=== PATIENT | female | born 1950 | race Hispanic/Latino ===

== ENCOUNTER 2021-05-18 04:40 | Inpatient (IN) | payer MEDICARE ==
[~2021-05-18] VITALS: Ht 162.6 cm; Wt 88.9 kg
[~2021-05-18 04:40] MED LIST: AMIO200T68 PO; APIX5TAB PO; ASPI-1005 PO; ATOR40TA69 PO; CARV3.1262 PO; Cefuroxime Axetil PO; DAPA5TAB PO; DICL100G31 TP; FLUT25PO3 NASAL; FURO20TA6 PO; LEVE-43 PO; LORA10TA7 PO; LOSA50TA64 PO; MECL-160 PO
[2021-05-18 05:09] LABS: BASOPHILS % (AUTO) 0.6 % (0.0-5.0); EOSINOPHILS % (AUTO) 1.3 % (0.0-8.0); HEMATOCRIT 40.4 % (36-48); MEAN CORPUSCULAR HEMOGLOBIN 25.1 pg (27.0-33.0); MEAN CORPUSCULAR HGB CONC 29.7 g/dL (32.0-36.0); MEAN CORPUSCULAR VOLUME 84.5 fL (79-99); MONOCYTES % (AUTO) 8.7 % (3.0-13.0); NEUTROPHILS % (AUTO) 72.5 % (40.0-77.0); PLATELET COUNT (AUTO) 195 K/uL (130-400); RED BLOOD CELL COUNT(AUTO) 4.78 MIL/uL (4.00-5.50); RED CELL DISTRIBUTION WIDTH 16.5 % (11.0-15.5); WHITE BLOOD COUNT (AUTO) 9.3 K/uL (4.8-10.8)
[2021-05-18 05:12] LABS: INR 1.07 (0.85-1.15); PROTHROMBIN TIME 11.6 SEC (9.6-11.6)
[2021-05-18 05:14] LABS: CREATININE 1.3 mg/dL (0.5-1.5); PARTIAL THROMBOPLASTIN TIME 26.6 SEC (26.3-35.5); POTASSIUM 3.6 mmol/L (3.5-5.1)
[2021-05-18 05:20] LABS: ALBUMIN 3.5 g/dL (3.5-5.0); BILIRUBIN,TOTAL 0.5 mg/dL (0.2-1.0); MAGNESIUM 2.1 mg/dL (1.80-2.40); TOTAL PROTEIN, SERUM 7.3 g/dL (6.0-8.3)
[2021-05-18 05:34] LABS: B-TYPE NATRIURETIC PEPTIDE 674 pg/mL (0-100)
[2021-05-18] MEDS ORDERED: SACU1TAB PO (10:04)
[2021-05-18] MEDS ORDERED: FAMO40TA7 PO (10:11)
[2021-05-18] MEDS ORDERED: GLIP10TA9 PO (10:11)
[2021-05-18] MEDS ORDERED: METO25TA6 PO (10:11)
[2021-05-18] MEDS ORDERED: COMPOUND IV MISC 1 EACH IVSOLN MISC PRN (12:30)
[2021-05-18 14:40] LABS: ABG BASE EXCESS -0.3 mmol/L (-2.0-3.0); ABG HCO3 24.3 mmol/L (21.0-28.0); ABG OXYGEN SATURATION 97.1 % (95.0-99.0); ABG PCO2 40 mmHg (32-45)
[2021-05-18] MEDS: ATORVASTATIN 40 MG TABLET PO SCH (21:00)
[2021-05-18] MEDS: LEVETIRACETAM 500 MG in 0.9%NACL 100ML 100 ML IV SCH (21:00)
[2021-05-18] MEDS ORDERED: LEVETIRACETAM 500 MG TABLET PO SCH (21:00)
[2021-05-18 22:00] LABS: APPEARANCE,URINE Turbid (CLEAR); BILIRUBIN,URINE Negative (NEGATIVE); COLOR,URINE Yellow (YELLOW); GLUCOSE, URINE (UA) >=1000 mg/dL (NEGATIVE); KETONES,URINE Negative (NEGATIVE); LEUKOCYTE ESTERASE ,URINE Trace (NEGATIVE); NITRATE,URINE Negative (NEGATIVE); OCCULT BLOOD,URINE Large (NEGATIVE); PROTEIN,URINE 300 mg/dL (NEGATIVE); UROBILINOGEN,URINE 0.2 mg/dL (0.2-1.0)
[2021-05-18 22:32] LABS: BACTERIA,URINE Moderate /HPF (None Seen); MUCUS,URINE Rare LPF (None Seen); YEAST,URINE BUDDING Many /HPF (None Seen)
[2021-05-19] VITALS (7 sets, daily range): BP systolic 124–145; BP diastolic 64–81
[2021-05-19 04:53] LABS: ABG BASE EXCESS 0.5 mmol/L (-2.0-3.0); ABG HCO3 24.8 mmol/L (21.0-28.0); ABG OXYGEN SATURATION 94.8 % (95.0-99.0); ABG PCO2 39 mmHg (32-45)
[2021-05-19] MEDS: ASPIRIN 81MG CHEW TAB PO SCH (08:39)
[2021-05-19] MEDS: LEVETIRACETAM 500 MG in 0.9%NACL 100ML 100 ML IV SCH ×2 (08:39→20:05)
[2021-05-19] MEDS: ATORVASTATIN 40 MG TABLET PO SCH (20:05)
[2021-05-20 04:06] LABS: BASOPHILS % (AUTO) 0.8 % (0.0-5.0); EOSINOPHILS % (AUTO) 0.5 % (0.0-8.0); HEMATOCRIT 38.5 % (36-48); LYMPHOCYTES % (AUTO) 32.2 % (21.0-51.0); MEAN CORPUSCULAR HEMOGLOBIN 25.1 pg (27.0-33.0); MEAN CORPUSCULAR HGB CONC 29.6 g/dL (32.0-36.0); MEAN CORPUSCULAR VOLUME 84.6 fL (79-99); MONOCYTES % (AUTO) 16.4 % (3.0-13.0); NEUTROPHILS % (AUTO) 49.3 % (40.0-77.0); PLATELET COUNT (AUTO) 154 K/uL (130-400); RED BLOOD CELL COUNT(AUTO) 4.55 MIL/uL (4.00-5.50); RED CELL DISTRIBUTION WIDTH 16.7 % (11.0-15.5); WHITE BLOOD COUNT (AUTO) 3.9 K/uL (4.8-10.8)
[2021-05-20 04:39] LABS: CARBON DIOXIDE 26 mmol/L (21-32); CHLORIDE 106 mmol/L (101-111); CREATININE 1.2 mg/dL (0.5-1.5); GLOMERULAR FILTR. RATE CALC 47 mL/min (>60); GLUCOSE,RANDOM 163 mg/dL (70-105); POTASSIUM 4.4 mmol/L (3.5-5.1); SODIUM SERUM 138 mmol/L (136-145); UREA NITROGEN, BLOOD 33 mg/dL (7-18)
[2021-05-20 04:42] LABS: CRP QUANTITATIVE < 2.00 mg/L (0.00-9.0)
[2021-05-20 04:45] VITALS: BP 118/57
[2021-05-20 08:00] VITALS: BP 139/69
[2021-05-20] MEDS: FUROSEMIDE 20 MG TABLET PO SCH ×2 (08:24→21:03)
[2021-05-20] MEDS: ASPIRIN 81MG CHEW TAB PO SCH (08:24)
[2021-05-20] MEDS: FAMOTIDINE 20MG TAB PO SCH (08:25)
[2021-05-20] MEDS: FARXIGA 5 MG PO SCH (09:00)
[2021-05-20] MEDS: LEVETIRACETAM 500 MG TABLET PO SCH ×2 (09:31→21:03)
[2021-05-20 12:00] VITALS: BP 136/69
[2021-05-20] MEDS: SACUBITRIL/VALSARTAN 1 EACH TABLET PO SCH ×2 (12:12→21:03)
[2021-05-20] MEDS ORDERED: VANCOMYCIN 1G/250ML KIT 250 ML IV PRN (14:30)
[2021-05-20 16:00] VITALS: BP 132/76
[2021-05-20 20:02] VITALS: BP 142/73
[2021-05-20] MEDS: ATORVASTATIN 40 MG TABLET PO SCH (21:03)
[2021-05-21] VITALS (7 sets, daily range): BP systolic 120–146; BP diastolic 53–88
[2021-05-21] MEDS: FARXIGA 5 MG PO SCH (09:00)
[2021-05-21] MEDS: LEVETIRACETAM 500 MG TABLET PO SCH ×2 (09:02→19:59)
[2021-05-21] MEDS: FAMOTIDINE 20MG TAB PO SCH (09:02)
[2021-05-21] MEDS: FUROSEMIDE 20 MG TABLET PO SCH ×2 (09:02→19:59)
[2021-05-21] MEDS: SACUBITRIL/VALSARTAN 1 EACH TABLET PO SCH ×2 (09:02→19:59)
[2021-05-21] MEDS: ASPIRIN 81MG CHEW TAB PO SCH (09:03)
[2021-05-21] MEDS ORDERED: GLUCAGON 1MG KIT 1 MG ML IM PRN (14:30)
[2021-05-21] MEDS ORDERED: DEXTROSE 50%-WATER 50 ML DISP.SYRIN IV PRN (14:30)
[2021-05-21] MEDS: INSULIN HUMULIN R 100 UNIT/ML 3ML SQ SCH ×2 (16:48→20:46)
[2021-05-21] MEDS: ATORVASTATIN 40 MG TABLET PO SCH (20:03)
[2021-05-21] MEDS: NITROFURANTOIN MONOHYD/M-CRYST 100 MG CAPSULE PO SCH (20:03)
[2021-05-22 04:11] VITALS: BP 118/61
[2021-05-22 04:34] LABS: BASOPHILS % (AUTO) 0.5 % (0.0-5.0); HEMATOCRIT 43.2 % (36-48); LYMPHOCYTES % (AUTO) 47.9 % (21.0-51.0); MEAN CORPUSCULAR HEMOGLOBIN 24.7 pg (27.0-33.0); MEAN CORPUSCULAR HGB CONC 29.6 g/dL (32.0-36.0); MEAN CORPUSCULAR VOLUME 83.2 fL (79-99); MONOCYTES % (AUTO) 12.1 % (3.0-13.0); NEUTROPHILS % (AUTO) 38.2 % (40.0-77.0); PLATELET COUNT (AUTO) 166 K/uL (130-400); RED BLOOD CELL COUNT(AUTO) 5.19 MIL/uL (4.00-5.50); RED CELL DISTRIBUTION WIDTH 16.4 % (11.0-15.5); WHITE BLOOD COUNT (AUTO) 3.9 K/uL (4.8-10.8)
[2021-05-22 05:02] LABS: CREATININE 1.3 mg/dL (0.5-1.5); POTASSIUM 3.5 mmol/L (3.5-5.1)
[2021-05-22] MEDS: INSULIN HUMULIN R 100 UNIT/ML 3ML SQ SCH ×4 (05:55→21:00)
[2021-05-22] MEDS ORDERED: COMPOUND IV REFRIGERATED 1 EACH IVSOLN MISC PRN (08:30)
[2021-05-22] MEDS ORDERED: VANCOMYCIN PROTOCOL PER PHARMACY IV SCH (08:30)
[2021-05-22] MEDS: FUROSEMIDE 20 MG TABLET PO SCH ×2 (10:54→20:40)
[2021-05-22] MEDS: LEVETIRACETAM 500 MG TABLET PO SCH ×2 (10:54→20:40)
[2021-05-22] MEDS: SACUBITRIL/VALSARTAN 1 EACH TABLET PO SCH ×2 (10:55→20:40)
[2021-05-22] MEDS: FAMOTIDINE 20MG TAB PO SCH (10:55)
[2021-05-22] MEDS: NITROFURANTOIN MONOHYD/M-CRYST 100 MG CAPSULE PO SCH ×2 (10:55→20:40)
[2021-05-22] MEDS: ASPIRIN 81MG CHEW TAB PO SCH (10:55)
[2021-05-22] MEDS: FARXIGA 5 MG PO SCH (10:55)
[2021-05-22] MEDS: VANCOMYCIN 1.25GM/NS 250ML IVPB SCH ×2 (11:20)
[2021-05-22 12:00] VITALS: BP 136/83
[2021-05-22 16:00] VITALS: BP 143/85
[2021-05-22 20:00] VITALS: BP 120/49
[2021-05-22] MEDS: ATORVASTATIN 40 MG TABLET PO SCH (20:40)
[2021-05-22] MEDS: BUSPIRONE HCL 5 MG TABLET PO SCH (20:40)
[2021-05-23] VITALS (12 sets, daily range): BP systolic 125–157; BP diastolic 49–94
[2021-05-23 05:00] LABS: BASOPHILS % (AUTO) 0.4 % (0.0-5.0); EOSINOPHILS % (AUTO) 0.9 % (0.0-8.0); HEMATOCRIT 43.7 % (36-48); LYMPHOCYTES % (AUTO) 44.9 % (21.0-51.0); MEAN CORPUSCULAR HEMOGLOBIN 25.4 pg (27.0-33.0); MEAN CORPUSCULAR VOLUME 84.7 fL (79-99); MONOCYTES % (AUTO) 10.5 % (3.0-13.0); NEUTROPHILS % (AUTO) 42.9 % (40.0-77.0); PLATELET COUNT (AUTO) 158 K/uL (130-400); RED BLOOD CELL COUNT(AUTO) 5.16 MIL/uL (4.00-5.50); RED CELL DISTRIBUTION WIDTH 16.5 % (11.0-15.5); WHITE BLOOD COUNT (AUTO) 4.6 K/uL (4.8-10.8)
[2021-05-23 05:15] LABS: CREATININE 1.4 mg/dL (0.5-1.5); POTASSIUM 3.4 mmol/L (3.5-5.1)
[2021-05-23 05:24] LABS: INR 0.96 (0.85-1.15); PROTHROMBIN TIME 10.5 SEC (9.6-11.6)
[2021-05-23] MEDS: INSULIN HUMULIN R 100 UNIT/ML 3ML SQ SCH ×4 (06:12→21:00)
[2021-05-23] MEDS ORDERED: DiphenhydrAMINE HCL 50 MG/ML VIAL ONE (07:24)
[2021-05-23] MEDS ORDERED: IOHEXOL-350 50ML VIAL IV ONE (07:24)
[2021-05-23] MEDS ORDERED: SOLU-MEDROL 125MG VIAL ONE (07:24)
[2021-05-23] MEDS ORDERED: MIDAZOLAM HCL 1 MG/ML 2ML VIAL ONE ×3 (07:24→11:18)
[2021-05-23] MEDS ORDERED: LIDOCAINE HCL 400MG/20ML VIAL ONE ×2 (07:25→11:18)
[2021-05-23] MEDS ORDERED: FAMOTIDINE 20MG VIAL IV ONE (07:25)
[2021-05-23] MEDS ORDERED: FENTANYL CITRATE PF 50 MCG/1 ML 2ML VIAL ONE (07:25)
[2021-05-23] MEDS ORDERED: IOHEXOL 350 MG/ML 100ML INFUS..BTL IV ONE (07:49)
[2021-05-23] MEDS ORDERED: POTASSIUM CHLORIDE 20MEQ/100ML 100 ML IV PRN ×2 (08:00→11:30)
[2021-05-23] MEDS ORDERED: LIDOCAINE HCL-MPF 1% 2ML VIAL IV PRN ×2 (08:00→11:30)
[2021-05-23] MEDS ORDERED: BUPIVACAINE/PF 0.25% 30ML VIAL IJ ONE (08:03)
[2021-05-23] MEDS ORDERED: LIDOCAINE HCL 1% 20 ML VIAL ONE (08:38)
[2021-05-23] MEDS: VANCOMYCIN 1.25GM/NS 250ML IVPB SCH ×2 (09:00)
[2021-05-23] MEDS: FARXIGA 5 MG PO SCH (09:00)
[2021-05-23] MEDS ORDERED: TRAMADOL HCL 50 MG TABLET PO PRN (10:30)
[2021-05-23] MEDS: FAMOTIDINE 20MG TAB PO SCH (10:59)
[2021-05-23] MEDS: ASPIRIN 81MG CHEW TAB PO SCH (11:00)
[2021-05-23] MEDS: BUSPIRONE HCL 5 MG TABLET PO SCH ×2 (11:00→20:37)
[2021-05-23] MEDS: FUROSEMIDE 20 MG TABLET PO SCH ×2 (11:01→20:38)
[2021-05-23] MEDS: SACUBITRIL/VALSARTAN 1 EACH TABLET PO SCH ×2 (11:01→20:38)
[2021-05-23] MEDS: POTASSIUM CHLORIDE 10% ELIXIR 20 MEQ/15 ML UDCUP PO PRN ×2 (11:15→17:54)
[2021-05-23] MEDS ORDERED: IODIXANOL 320 MG/ML 100 ML VIAL ONE (11:18)
[2021-05-23] MEDS ORDERED: HEPARIN 10,000 UNIT/10ML (1,000 UNIT/ML) VIAL ONE (11:19)
[2021-05-23] MEDS ORDERED: KCL 20 MEQ ERTAB PO PRN (11:30)
[2021-05-23] MEDS: ACETAMINOPHEN WITH CODEINE 1 TAB TAB PO PRN ×2 (15:56→20:38)
[2021-05-23] MEDS: ATORVASTATIN 40 MG TABLET PO SCH (20:37)
[2021-05-23] MEDS: AMOXICILLIN 500 MG CAPSULE PO SCH (20:38)
[2021-05-24 03:28] VITALS: BP 122/70
[2021-05-24 04:22] LABS: BASOPHILS % (AUTO) 0.2 % (0.0-5.0); HEMATOCRIT 43.9 % (36-48); LYMPHOCYTES % (AUTO) 17.1 % (21.0-51.0); MEAN CORPUSCULAR HEMOGLOBIN 25.1 pg (27.0-33.0); MEAN CORPUSCULAR HGB CONC 30.1 g/dL (32.0-36.0); MEAN CORPUSCULAR VOLUME 83.5 fL (79-99); MONOCYTES % (AUTO) 8.8 % (3.0-13.0); NEUTROPHILS % (AUTO) 73.3 % (40.0-77.0); PLATELET COUNT (AUTO) 171 K/uL (130-400); RED BLOOD CELL COUNT(AUTO) 5.26 MIL/uL (4.00-5.50); RED CELL DISTRIBUTION WIDTH 16.3 % (11.0-15.5); WHITE BLOOD COUNT (AUTO) 5.4 K/uL (4.8-10.8)
[2021-05-24 04:41] LABS: ALBUMIN 3.1 g/dL (3.5-5.0); BILIRUBIN,TOTAL 0.4 mg/dL (0.2-1.0); CREATININE 1.4 mg/dL (0.5-1.5); POTASSIUM 4.2 mmol/L (3.5-5.1); TOTAL PROTEIN, SERUM 6.9 g/dL (6.0-8.3)
[2021-05-24 08:34] VITALS: BP 133/72
[2021-05-24] MEDS: ASPIRIN 81MG CHEW TAB PO SCH (08:40)
[2021-05-24] MEDS: SACUBITRIL/VALSARTAN 1 EACH TABLET PO SCH ×2 (08:40→20:31)
[2021-05-24] MEDS: AMOXICILLIN 500 MG CAPSULE PO SCH ×2 (08:40→20:31)
[2021-05-24] MEDS: FUROSEMIDE 20 MG TABLET PO SCH ×2 (08:41→20:31)
[2021-05-24] MEDS: FAMOTIDINE 20MG TAB PO SCH (08:41)
[2021-05-24] MEDS: BUSPIRONE HCL 5 MG TABLET PO SCH ×2 (08:41→20:31)
[2021-05-24] MEDS: INSULIN HUMULIN R 100 UNIT/ML 3ML SQ SCH ×4 (08:51→20:51)
[2021-05-24] MEDS: VANCOMYCIN 1.25GM/NS 250ML IVPB SCH ×2 (10:01)
[2021-05-24 12:26] VITALS: BP 132/70
[2021-05-24 16:30] VITALS: BP 114/61
[2021-05-24 19:00] VITALS: BP 122/64
[2021-05-24] MEDS: ATORVASTATIN 40 MG TABLET PO SCH (20:32)
== END 2021-05-24 20:52 | disposition home or self-care (01) | DRG 226 ==
LOC: EDH 04:40 → EDHIP 07:54 → 2AH 22:37
PROVIDERS: ADMIT Internal Medicine; ATTEND Internal Medicine
PROC: 0JH608Z Insertion of Defibrillator Generator into Chest Subcutaneous Tissue and Fascia, Open Approach (ICD-10-PCS; principal; 2021-05-23)
PROC: 02HK3KZ Insertion of Defibrillator Lead into Right Ventricle, Percutaneous Approach (ICD-10-PCS; 2021-05-23)
PROC: 02H63KZ Insertion of Defibrillator Lead into Right Atrium, Percutaneous Approach (ICD-10-PCS; 2021-05-23)
PROC: 02HL3KZ Insertion of Defibrillator Lead into Left Ventricle, Percutaneous Approach (ICD-10-PCS; 2021-05-23)
DX: I46.9 Cardiac arrest, cause unspecified (principal); J12.82 Pneumonia due to coronavirus disease 2019; U07.1 COVID-19; I13.0 Hypertensive heart and chronic kidney disease with heart failure and stage 1 through stage 4 chronic kidney disease, or unspecified chronic kidney disease; I50.42 Chronic combined systolic (congestive) and diastolic (congestive) heart failure; N39.0 Urinary tract infection, site not specified; E87.1 Hypo-osmolality and hyponatremia; I69.354 Hemiplegia and hemiparesis following cerebral infarction affecting left non-dominant side; I42.9 Cardiomyopathy, unspecified; I45.2 Bifascicular block; I44.2 Atrioventricular block, complete; I48.0 Paroxysmal atrial fibrillation; I27.20 Pulmonary hypertension, unspecified; I25.10 Atherosclerotic heart disease of native coronary artery without angina pectoris; E78.5 Hyperlipidemia, unspecified; G47.30 Sleep apnea, unspecified; E66.9 Obesity, unspecified; B95.2 Enterococcus as the cause of diseases classified elsewhere; E11.22 Type 2 diabetes mellitus with diabetic chronic kidney disease; E78.00 Pure hypercholesterolemia, unspecified; N18.9 Chronic kidney disease, unspecified; Z68.35 Body mass index [BMI] 35.0-35.9, adult; I25.2 Old myocardial infarction; Z79.899 Other long term (current) drug therapy; Z82.5 Family history of asthma and other chronic lower respiratory diseases; Z82.3 Family history of stroke; Z82.49 Family history of ischemic heart disease and other diseases of the circulatory system; Z83.3 Family history of diabetes mellitus; Z98.49 Cataract extraction status, unspecified eye; Z79.82 Long term (current) use of aspirin; Z87.442 Personal history of urinary calculi; Z95.810 Presence of automatic (implantable) cardiac defibrillator; Z95.1 Presence of aortocoronary bypass graft
CPT/HCPCS: 33225; 33249; 36415; 36600; 70450; 70551; 71045; 80048; 80053; 81001; 82435; 82550; 82803; 82947; 82948; 83605; 83735; 83880; 84132; 84145; 84146; 84295; 84484; 85018; 85025; 85378; 85610; 85730; 86140; 87077; 87088; 87186; 87635; 93005; 99156; 99157; C1769; C9803; G0378; J1200; J1644; J1815; J1953; J2250; J2930; J3010; J3370; J3490; J7050; Q9967

== ENCOUNTER 2021-06-19 22:15 | Inpatient (IN) | payer MEDICARE ==
[~2021-06-19] VITALS: Ht 160 cm; Wt 95.6 kg
[~2021-06-19 22:15] MED LIST changes: -Cefuroxime Axetil PO; -DICL100G31 TP; +FAMO40TA7 PO; -FLUT25PO3 NASAL; -LEVE-43 PO; -LORA10TA7 PO; -LOSA50TA64 PO; -MECL-160 PO; +SACU1TAB PO
[2021-06-19] MEDS ORDERED: 0.9%NACL 1000ML 1,000 ML IV ONE (22:30)
[2021-06-19 22:59] LABS: BASOPHILS % (AUTO) 0.3 % (0.0-5.0); HEMATOCRIT 38.8 % (36-48); LYMPHOCYTES % (AUTO) 2.2 % (21.0-51.0); MEAN CORPUSCULAR HEMOGLOBIN 26.4 pg (27.0-33.0); MEAN CORPUSCULAR HGB CONC 30.4 g/dL (32.0-36.0); MEAN CORPUSCULAR VOLUME 86.8 fL (79-99); MONOCYTES % (AUTO) 5.7 % (3.0-13.0); NEUTROPHILS % (AUTO) 88.1 % (40.0-77.0); PLATELET COUNT (AUTO) 118 K/uL (130-400); RED BLOOD CELL COUNT(AUTO) 4.47 MIL/uL (4.00-5.50); RED CELL DISTRIBUTION WIDTH 17.7 % (11.0-15.5); WHITE BLOOD COUNT (AUTO) 21.3 K/uL (4.8-10.8)
[2021-06-19 23:08] LABS: CREATININE 2.5 mg/dL (0.5-1.5); POTASSIUM 3.8 mmol/L (3.5-5.1)
[2021-06-19 23:15] LABS: INR 1.17 (0.85-1.15); PROTHROMBIN TIME 12.6 SEC (9.6-11.6)
[2021-06-19 23:17] LABS: ALBUMIN 3.1 g/dL (3.5-5.0); BILIRUBIN,TOTAL 0.8 mg/dL (0.2-1.0); PARTIAL THROMBOPLASTIN TIME 32.8 SEC (26.3-35.5)
[2021-06-19] MEDS ORDERED: ZOSYN 3.375GM +NS 50ML IV ONE (23:30)
[2021-06-20] MEDS ORDERED: ZOSYN 3.375GM+NS 50ML 50 ML ONE (00:35)
[2021-06-20] MEDS ORDERED: 0.9%NACL 1000ML 1,000 ML IV ONE (01:00)
[2021-06-20] MEDS ORDERED: 0.9%NACL 1000ML 1,000 ML IV SCH (02:00)
[2021-06-20] MEDS ORDERED: ACETAMINOPHEN 325 MG TAB PO PRN (02:00)
[2021-06-20] MEDS ORDERED: ONDANSETRON 4MG INJ IV PRN (02:00)
[2021-06-20 03:06] LABS: APPEARANCE,URINE Turbid (CLEAR); BILIRUBIN,URINE Negative (NEGATIVE); COLOR,URINE Yellow (YELLOW); GLUCOSE, URINE (UA) >=1000 mg/dL (NEGATIVE); KETONES,URINE Negative (NEGATIVE); LEUKOCYTE ESTERASE ,URINE Large (NEGATIVE); NITRATE,URINE Negative (NEGATIVE); OCCULT BLOOD,URINE Large (NEGATIVE); PROTEIN,URINE POS 1+ mg/dL (NEGATIVE)
[2021-06-20 03:14] LABS: BACTERIA,URINE Moderate /HPF (None Seen); MUCUS,URINE Moderate LPF (None Seen); RBC,URINE 26-50 /HPF (0-1); SQUAMOUS EPITHELIAL CELL,UR None Seen /HPF (0-2); WBC,URINE TNTC /HPF (0-1)
[2021-06-20] MEDS: INSULIN HUMULIN R 100 UNIT/ML 3ML SQ SCH ×4 (07:30→21:00)
[2021-06-20 08:00] LABS: BASOPHILS % (AUTO) 0.2 % (0.0-5.0); EOSINOPHILS % (AUTO) 7.3 % (0.0-8.0); HEMATOCRIT 34.9 % (36-48); LYMPHOCYTES % (AUTO) 5.1 % (21.0-51.0); MEAN CORPUSCULAR HEMOGLOBIN 26.1 pg (27.0-33.0); MEAN CORPUSCULAR HGB CONC 30.1 g/dL (32.0-36.0); MEAN CORPUSCULAR VOLUME 86.8 fL (79-99); MONOCYTES % (AUTO) 5.1 % (3.0-13.0); NEUTROPHILS % (AUTO) 79.1 % (40.0-77.0); PLATELET COUNT (AUTO) 105 K/uL (130-400); RED BLOOD CELL COUNT(AUTO) 4.02 MIL/uL (4.00-5.50); RED CELL DISTRIBUTION WIDTH 17.8 % (11.0-15.5); WHITE BLOOD COUNT (AUTO) 23.1 K/uL (4.8-10.8)
[2021-06-20 08:11] LABS: ALBUMIN 2.6 g/dL (3.5-5.0); BILIRUBIN,TOTAL 0.6 mg/dL (0.2-1.0); CREATININE 2.1 mg/dL (0.5-1.5); POTASSIUM 3.5 mmol/L (3.5-5.1); TOTAL PROTEIN, SERUM 6.1 g/dL (6.0-8.3)
[2021-06-20 08:19] LABS: CRP QUANTITATIVE 203.9 mg/L (0.00-9.0)
[2021-06-20] MEDS: ZOSYN 3.375GM+NS 50ML 50 ML IV SCH ×3 (08:35→21:14)
[2021-06-20] MEDS ORDERED: FAMOTIDINE 20MG TAB PO SCH (09:00)
[2021-06-20] MEDS ORDERED: AMIO400T4 PO (11:33)
[2021-06-20] MEDS ORDERED: INSU100V12 SQ (11:33)
[2021-06-20] MEDS ORDERED: LORA10TA7 PO (11:33)
[2021-06-20] MEDS ORDERED: FUROSEMIDE 20MG VIAL IV ONE (17:30)
[2021-06-20] MEDS ORDERED: PHARMACY COMMUNICATION MISC ONE (23:45)
[2021-06-21] MEDS ORDERED: VANCOMYCIN 1G VIAL IVPB ONE
[2021-06-21] MEDS ORDERED: VANCOMYCIN PROTOCOL PER PHARMACY IV SCH
[2021-06-21] MEDS ORDERED: RENAL DOSE IV PRN
[2021-06-21] MEDS ORDERED: VANCOMYCIN 1G/250ML KIT 250 ML IV ONE (00:56)
[2021-06-21] MEDS: MEROPENEM 1 GM VIAL IVP SCH ×3 (00:59→17:48)
[2021-06-21 07:11] LABS: BASOPHILS % (AUTO) 0.3 % (0.0-5.0); EOSINOPHILS % (AUTO) 0.1 % (0.0-8.0); HEMATOCRIT 35.1 % (36-48); LYMPHOCYTES % (AUTO) 6.3 % (21.0-51.0); MEAN CORPUSCULAR HEMOGLOBIN 26.5 pg (27.0-33.0); MEAN CORPUSCULAR HGB CONC 30.5 g/dL (32.0-36.0); MEAN CORPUSCULAR VOLUME 86.9 fL (79-99); MONOCYTES % (AUTO) 5.1 % (3.0-13.0); NEUTROPHILS % (AUTO) 85.9 % (40.0-77.0); PLATELET COUNT (AUTO) 111 K/uL (130-400); RED BLOOD CELL COUNT(AUTO) 4.04 MIL/uL (4.00-5.50); RED CELL DISTRIBUTION WIDTH 17.9 % (11.0-15.5); WHITE BLOOD COUNT (AUTO) 18.1 K/uL (4.8-10.8)
[2021-06-21 07:21] LABS: CREATININE 1.7 mg/dL (0.5-1.5); MAGNESIUM 2.1 mg/dL (1.80-2.40); PHOSPHORUS 3.8 mg/dL (2.5-4.9); POTASSIUM 3.6 mmol/L (3.5-5.1)
[2021-06-21] MEDS: INSULIN HUMULIN R 100 UNIT/ML 3ML SQ SCH ×5 (07:30→21:15)
[2021-06-21 07:35] LABS: HEMOGLOBIN A1C 8.5 % (4.0-6.0)
[2021-06-21] MEDS: PANTOPRAZOLE 40 MG/VIAL IVP SCH (09:00)
[2021-06-21] MEDS: LORATADINE 10 MG TABLET PO SCH (09:00)
[2021-06-21] MEDS ORDERED: FLUCONAZOLE 100 MG TAB PO SCH (09:00)
[2021-06-21] MEDS: AMIODARONE 200 MG TABLET PO SCH (09:30)
[2021-06-21] MEDS: MIDODRINE HCL 5 MG TABLET PO SCH ×3 (09:30→21:00)
[2021-06-21] MEDS: ASPIRIN 81MG CHEW TAB PO SCH (09:30)
[2021-06-21] MEDS: CARVEDILOL 3.125 MG TABLET PO SCH ×2 (09:30→21:07)
[2021-06-21] MEDS ORDERED: FUROSEMIDE 20MG VIAL ONE (11:12)
[2021-06-21] MEDS: VANCOMYCIN 1G/250ML KIT 250 ML IV SCH (13:00)
[2021-06-21 20:00] VITALS: BP 126/58
[2021-06-21] MEDS: ATORVASTATIN 40 MG TABLET PO SCH (21:06)
[2021-06-21 23:47] VITALS: BP 136/76
[2021-06-22] MEDS: MEROPENEM 1 GM VIAL IVP SCH ×2 (00:46→10:04)
[2021-06-22 04:04] VITALS: BP 112/53
[2021-06-22 05:58] LABS: BASOPHILS % (AUTO) 0.3 % (0.0-5.0); EOSINOPHILS % (AUTO) 0.1 % (0.0-8.0); HEMATOCRIT 37.6 % (36-48); MEAN CORPUSCULAR HEMOGLOBIN 25.8 pg (27.0-33.0); MEAN CORPUSCULAR HGB CONC 29.5 g/dL (32.0-36.0); MEAN CORPUSCULAR VOLUME 87.4 fL (79-99); MONOCYTES % (AUTO) 4.5 % (3.0-13.0); NEUTROPHILS % (AUTO) 82.9 % (40.0-77.0); PLATELET COUNT (AUTO) 122 K/uL (130-400)
[2021-06-22 06:21] LABS: CREATININE 1.3 mg/dL (0.5-1.5); POTASSIUM 3.6 mmol/L (3.5-5.1)
[2021-06-22] MEDS: INSULIN HUMULIN R 100 UNIT/ML 3ML SQ SCH ×4 (07:20→20:45)
[2021-06-22 07:45] VITALS: BP 143/75
[2021-06-22] MEDS: MIDODRINE HCL 5 MG TABLET PO SCH ×3 (09:58→21:37)
[2021-06-22] MEDS: PANTOPRAZOLE 40 MG/VIAL IVP SCH (09:58)
[2021-06-22] MEDS: LORATADINE 10 MG TABLET PO SCH (09:58)
[2021-06-22] MEDS: AMIODARONE 200 MG TABLET PO SCH (09:58)
[2021-06-22] MEDS: ASPIRIN 81MG CHEW TAB PO SCH (09:58)
[2021-06-22] MEDS: VANCOMYCIN 1G/250ML KIT 250 ML IV SCH (09:58)
[2021-06-22] MEDS: CARVEDILOL 3.125 MG TABLET PO SCH ×2 (10:00→21:36)
[2021-06-22] MEDS: INSULIN GLARGINE 100 UNITS/ML 10 ML VIAL SQ SCH (10:02)
[2021-06-22 11:27] VITALS: BP 138/65
[2021-06-22] MEDS ORDERED: CEFTRIAXONE 1G VIAL IVP SCH (14:00)
[2021-06-22 16:00] VITALS: BP 124/55
[2021-06-22 20:15] VITALS: BP 117/84
[2021-06-22] MEDS: ATORVASTATIN 40 MG TABLET PO SCH (21:36)
[2021-06-22 23:38] VITALS: BP 139/60
[2021-06-23 03:41] VITALS: BP 119/60
[2021-06-23 04:22] LABS: BASOPHILS % (AUTO) 0.6 % (0.0-5.0); EOSINOPHILS % (AUTO) 0.9 % (0.0-8.0); LYMPHOCYTES % (AUTO) 21.8 % (21.0-51.0); MEAN CORPUSCULAR HEMOGLOBIN 26.5 pg (27.0-33.0); MEAN CORPUSCULAR HGB CONC 30.5 g/dL (32.0-36.0); MEAN CORPUSCULAR VOLUME 86.9 fL (79-99); MONOCYTES % (AUTO) 6.8 % (3.0-13.0); NEUTROPHILS % (AUTO) 68.5 % (40.0-77.0); PLATELET COUNT (AUTO) 119 K/uL (130-400); RED BLOOD CELL COUNT(AUTO) 4.26 MIL/uL (4.00-5.50); RED CELL DISTRIBUTION WIDTH 17.6 % (11.0-15.5)
[2021-06-23 04:51] LABS: ALBUMIN 2.3 g/dL (3.5-5.0); BILIRUBIN,TOTAL 0.3 mg/dL (0.2-1.0); CREATININE 1.4 mg/dL (0.5-1.5); POTASSIUM 3.5 mmol/L (3.5-5.1); TOTAL PROTEIN, SERUM 5.7 g/dL (6.0-8.3)
[2021-06-23] MEDS: INSULIN HUMULIN R 100 UNIT/ML 3ML SQ SCH (06:41)
[2021-06-23 07:10] VITALS: BP 139/70
[2021-06-23] MEDS ORDERED: FUROSEMIDE 20 MG TABLET PO SCH (09:00)
[2021-06-23] MEDS ORDERED: POTASSIUM CHLORIDE 10% ELIXIR 20 MEQ/15 ML UDCUP PO SCH (10:30)
[2021-06-23] MEDS: PANTOPRAZOLE 40 MG/VIAL IVP SCH (11:28)
[2021-06-23] MEDS: AMIODARONE 200 MG TABLET PO SCH (11:28)
[2021-06-23] MEDS: ASPIRIN 81MG CHEW TAB PO SCH (11:29)
[2021-06-23] MEDS: CARVEDILOL 3.125 MG TABLET PO SCH (11:30)
[2021-06-23] MEDS: MIDODRINE HCL 5 MG TABLET PO SCH (11:34)
[2021-06-23] MEDS: LORATADINE 10 MG TABLET PO SCH (11:34)
[2021-06-23] MEDS: INSULIN GLARGINE 100 UNITS/ML 10 ML VIAL SQ SCH (11:36)
[2021-06-23 11:57] VITALS: BP 149/77
[2021-06-23] MEDS ORDERED: CEFU500T67 PO (12:11)
== END 2021-06-23 13:05 | disposition home or self-care (01) | DRG 871 ==
LOC: EDH 22:15 → EDHIP 06-20 01:43 → 4CH 06-21 18:55
PROVIDERS: ADMIT Internal Medicine; ATTEND Internal Medicine
DX: A41.50 Gram-negative sepsis, unspecified (principal); I50.43 Acute on chronic combined systolic (congestive) and diastolic (congestive) heart failure; N17.9 Acute kidney failure, unspecified; I13.0 Hypertensive heart and chronic kidney disease with heart failure and stage 1 through stage 4 chronic kidney disease, or unspecified chronic kidney disease; N13.6 Pyonephrosis; I48.20 Chronic atrial fibrillation, unspecified; R65.20 Severe sepsis without septic shock; E11.22 Type 2 diabetes mellitus with diabetic chronic kidney disease; N18.9 Chronic kidney disease, unspecified; B96.20 Unspecified Escherichia coli [E. coli] as the cause of diseases classified elsewhere; Z20.822 Contact with and (suspected) exposure to COVID-19; D64.9 Anemia, unspecified; D69.6 Thrombocytopenia, unspecified; E66.9 Obesity, unspecified; E78.5 Hyperlipidemia, unspecified; E86.0 Dehydration; E87.6 Hypokalemia; I25.10 Atherosclerotic heart disease of native coronary artery without angina pectoris; Z83.3 Family history of diabetes mellitus; Z86.16 Personal history of COVID-19; Z95.0 Presence of cardiac pacemaker; Z90.49 Acquired absence of other specified parts of digestive tract; Z79.899 Other long term (current) drug therapy; Z79.01 Long term (current) use of anticoagulants
CPT/HCPCS: 36415; 70450; 71045; 71250; 74176; 78708; 80048; 80053; 81001; 82948; 83036; 83605; 83735; 83880; 84100; 84145; 84484; 85025; 85610; 85730; 86140; 87040; 87077; 87088; 87186; 87635; A9562; C9113; G0378; J0696; J1815; J1940; J2185; J2543; J3370; J7030

== ENCOUNTER 2021-08-25 14:39 | Emergency (ER) | payer MEDICARE ==
[~2021-08-25] VITALS: Ht 162.6 cm; Wt 88.0 kg
[~2021-08-25 14:39] MED LIST changes: -AMIO200T68 PO; +AMIO400T4 PO; +CEFU500T67 PO; +FOLI1TAB85 PO; +INSU100V12 SQ; +LORA10TA7 PO
[2021-08-25 15:18] LABS: APPEARANCE,URINE Clear (CLEAR); BILIRUBIN,URINE Negative (NEGATIVE); COLOR,URINE Yellow (YELLOW); GLUCOSE, URINE (UA) >=1000 mg/dL (NEGATIVE); KETONES,URINE Negative (NEGATIVE); LEUKOCYTE ESTERASE ,URINE Negative (NEGATIVE); NITRATE,URINE Negative (NEGATIVE); OCCULT BLOOD,URINE Small (NEGATIVE); PROTEIN,URINE Negative (NEGATIVE); UROBILINOGEN,URINE 0.2 mg/dL (0.2-1.0)
[2021-08-25 15:27] LABS: SQUAMOUS EPITHELIAL CELL,UR Rare /HPF (0-2); TRANSITIONAL EPI CELLS,URINE Rare /HPF (None Seen); WBC,URINE 0-1 /HPF (0-1); YEAST,URINE BUDDING Rare /HPF (None Seen)
[2021-08-25 15:29] LABS: BACTERIA,URINE Few /HPF (None Seen)
== END 2021-08-25 16:32 | disposition home or self-care (01) ==
LOC: EDH 14:39
DX: T83.092A Other mechanical complication of nephrostomy catheter, initial encounter (principal); I10 Essential (primary) hypertension; Z79.01 Long term (current) use of anticoagulants; Z79.4 Long term (current) use of insulin; Z79.82 Long term (current) use of aspirin; Z88.8 Allergy status to other drugs, medicaments and biological substances; Z90.49 Acquired absence of other specified parts of digestive tract; Z95.1 Presence of aortocoronary bypass graft; Z95.810 Presence of automatic (implantable) cardiac defibrillator; Y83.8 Other surgical procedures as the cause of abnormal reaction of the patient, or of later complication, without mention of misadventure at the time of the procedure; Y92.89 Other specified places as the place of occurrence of the external cause
CPT/HCPCS: 81001

== ENCOUNTER → 2021-09-15 | Outpatient (CLI) | payer MEDICARE | END | disposition home or self-care (01) | LOC: RAH 13:18 | PROVIDERS: ATTEND Urology | DX: N20.0 Calculus of kidney (principal); N13.39 Other hydronephrosis | CPT/HCPCS: 78707; A9562 ==

== ENCOUNTER → 2021-09-26 | Outpatient (CLI) | payer MEDICARE | END | disposition home or self-care (01) | LOC: RAH 15:32 | PROVIDERS: ATTEND Urology | DX: K43.9 Ventral hernia without obstruction or gangrene (principal); N20.0 Calculus of kidney | CPT/HCPCS: 74176 ==

== ENCOUNTER → 2021-09-29 | Outpatient (CLI) | payer MEDICARE | END | disposition home or self-care (01) | LOC: RAH 09:59 | PROVIDERS: ATTEND Urology | DX: N20.0 Calculus of kidney (principal); Z93.6 Other artificial openings of urinary tract status | CPT/HCPCS: 74018; 76100 ==

== ENCOUNTER → 2021-11-25 | Outpatient (CLI) | payer MEDICARE ==
[~2021-11-25] MED LIST changes: -CEFU500T67 PO
== END | disposition home or self-care (01) ==
LOC: RAH 09:40
PROVIDERS: ATTEND Urology
DX: N20.2 Calculus of kidney with calculus of ureter (principal)
CPT/HCPCS: 74018; 76100

== ENCOUNTER 2021-12-21 06:12 | Day surgery (SDC) | payer MEDICARE ==
[2021-12-19 16:15] LABS: CREATININE 1.6 mg/dL (0.5-1.5); POTASSIUM 4.1 mmol/L (3.5-5.1)
[2021-12-19 16:17] LABS: INR 1.02 (0.85-1.15); PROTHROMBIN TIME 11.1 SEC (9.6-11.6)
[2021-12-19 16:18] LABS: PARTIAL THROMBOPLASTIN TIME 28.8 SEC (26.3-35.5)
[2021-12-20 14:30] VITALS: BP 168/88
[~2021-12-21] VITALS: Ht 152.4 cm; Wt 92.8 kg
[2021-12-21 06:16] VITALS: BP 184/73
[2021-12-21] MEDS ORDERED: 0.9%NACL 1000ML 1,000 ML IV ONE (06:22)
[2021-12-21] MEDS ORDERED: LIDOCAINE HCL 1% 10 ML VIAL ONE (07:08)
[2021-12-21] MEDS ORDERED: IOHEXOL-350 50ML VIAL IV ONE (07:08)
[2021-12-21] MEDS ORDERED: DiphenhydrAMINE HCL 50 MG/ML VIAL ONE (07:22)
[2021-12-21] MEDS ORDERED: MIDAZOLAM HCL 1 MG/ML 2ML VIAL ONE (07:27)
[2021-12-21] MEDS ORDERED: FENTANYL CITRATE PF 50 MCG/1 ML 2ML VIAL ONE (07:27)
== END 2021-12-21 08:58 | disposition home or self-care (01) ==
LOC: DAH 06:12
PROVIDERS: ATTEND Urology
DX: N13.0 Hydronephrosis with ureteropelvic junction obstruction (principal); I11.0 Hypertensive heart disease with heart failure; E11.9 Type 2 diabetes mellitus without complications; J45.20 Mild intermittent asthma, uncomplicated; I50.22 Chronic systolic (congestive) heart failure; E83.9 Disorder of mineral metabolism, unspecified; Z79.01 Long term (current) use of anticoagulants; Z79.899 Other long term (current) drug therapy; Z79.82 Long term (current) use of aspirin; Z88.3 Allergy status to other anti-infective agents; Z82.49 Family history of ischemic heart disease and other diseases of the circulatory system
CPT/HCPCS: 80048; 83880; 85610; 85730; 36415; 50435; 82948 ×2; C1769; C1729; J1200; J7030; J3490; J1644; Q9967; A4215; A4222; A4221; A4663; A4216; A4606; A4223 ×3; J2250; J3010

== ENCOUNTER → 2022-01-23 | Outpatient (CLI) | payer MEDICARE ==
[~2022-01-23] MED LIST changes: -AMIO400T4 PO
== END | disposition home or self-care (01) ==
LOC: RAH 12:08
PROVIDERS: ATTEND Urology
DX: N20.1 Calculus of ureter (principal); M47.815 Spondylosis without myelopathy or radiculopathy, thoracolumbar region; Z96.0 Presence of urogenital implants
CPT/HCPCS: 74018; 76100

== ENCOUNTER → 2023-09-26 | Outpatient (CLI) | payer MEDICARE ==
[2023-09-26 12:07] LABS: BASOPHILS # (AUTO) 0.08 K/uL (0.00-0.20); BASOPHILS % (AUTO) 0.7 % (0.0-5.0); EOSINOPHILS # (AUTO) 0.87 K/uL (0.00-0.70); EOSINOPHILS % (AUTO) 7.3 % (0.0-8.0); HEMATOCRIT 37.8 % (36-48); IMMATURE GRANULOCYTE ABSOLUTE 0.07 K/uL (0-1); LYMPHOCYTES # (AUTO) 3.2 K/uL (1.0-4.8); MEAN CORPUSCULAR VOLUME 96.9 fL (79-99); MONOCYTES # (AUTO) 0.8 K/uL (0.1-1.0); MONOCYTES % (AUTO) 6.8 % (3.0-13.0); NEUTROPHILS # (AUTO) 6.9 K/uL (1.8-7.7); NEUTROPHILS % (AUTO) 57.6 % (40.0-77.0); PLATELET COUNT (AUTO) 190 K/uL (130-400); RED CELL DISTRIBUTION WIDTH 13.6 % (11.0-15.5)
[2023-09-26 12:26] LABS: ALBUMIN 3.4 g/dL (3.5-5.0); BILIRUBIN,TOTAL 0.6 mg/dL (0.2-1.0); CREATININE 1.5 mg/dL (0.5-1.0); POTASSIUM 4.7 mmol/L (3.5-5.1); TOTAL PROTEIN, SERUM 7.9 g/dL (6.0-8.3)
== END | disposition home or self-care (01) ==
LOC: LAB 08:48
PROVIDERS: ATTEND Internal Medicine Cardiovascular Disease
DX: I50.22 Chronic systolic (congestive) heart failure (principal); E78.2 Mixed hyperlipidemia; D68.59 Other primary thrombophilia; I48.0 Paroxysmal atrial fibrillation
CPT/HCPCS: 36415; 80053; 80061; 85025

== ENCOUNTER → 2024-04-30 | Outpatient (CLI) | payer MEDICARE | END | disposition home or self-care (01) | LOC: RAH 12:27 | PROVIDERS: ATTEND Internal Medicine Cardiovascular Disease | DX: I25.10 Atherosclerotic heart disease of native coronary artery without angina pectoris (principal) | CPT/HCPCS: 93306 ==

== ENCOUNTER → 2024-05-09 | Outpatient (CLI) | payer MEDICARE ==
[2024-05-09 12:10] LABS: ALBUMIN 3.3 g/dL (3.5-5.0); BILIRUBIN,TOTAL 0.4 mg/dL (0.2-1.0); CREATININE 1.7 mg/dL (0.5-1.0); POTASSIUM 4.5 mmol/L (3.5-5.1); TOTAL PROTEIN, SERUM 7.3 g/dL (6.0-8.3)
== END | disposition home or self-care (01) ==
LOC: LAB 09:35
PROVIDERS: ATTEND Internal Medicine Cardiovascular Disease
DX: I25.10 Atherosclerotic heart disease of native coronary artery without angina pectoris (principal)
CPT/HCPCS: 36415; 80053

== ENCOUNTER → 2024-05-26 | Outpatient (CLI) | payer MEDICARE ==
--- NOTE | 2024-05-26 12:56 | HMCIMG ---
CHEST 2VWS HISTORY: Ischemic cardiomyopathy COMPARISON: 11/15/2021 FINDINGS: Frontal and lateral projections of the chest were obtained. There is no acute pulmonary infiltrates or failure. The heart is borderline enlarged. Poststernotomy changes are seen. Pacemaker is seen entering from the left. No evidence of aortic calcification is seen. Degenerative changes are seen of the thoracolumbar spine. IMPRESSION: 1. No acute pulmonary infiltrates.
== END | disposition home or self-care (01) ==
LOC: RAH 12:03
PROVIDERS: ATTEND Internal Medicine Cardiovascular Disease
DX: I25.5 Ischemic cardiomyopathy (principal); M47.815 Spondylosis without myelopathy or radiculopathy, thoracolumbar region; I25.10 Atherosclerotic heart disease of native coronary artery without angina pectoris; Z95.0 Presence of cardiac pacemaker; Z98.890 Other specified postprocedural states
CPT/HCPCS: 36415; 71046; 80053

== ENCOUNTER → 2024-05-26 | Outpatient (CLI) | payer MEDICARE ==
[2024-05-26 16:51] LABS: ALBUMIN 3.3 g/dL (3.5-5.0); BILIRUBIN,TOTAL 0.4 mg/dL (0.2-1.0); CREATININE 1.5 mg/dL (0.5-1.0); POTASSIUM 4.2 mmol/L (3.5-5.1); TOTAL PROTEIN, SERUM 7.4 g/dL (6.0-8.3)
== END | disposition home or self-care (01) ==
LOC: LAB 13:30
PROVIDERS: ATTEND Internal Medicine Cardiovascular Disease
DX: I25.10 Atherosclerotic heart disease of native coronary artery without angina pectoris (principal)
CPT/HCPCS: 36415; 80053

== ENCOUNTER → 2024-06-05 | Outpatient (CLI) | payer MEDICARE ==
[~2024-06-05] MED LIST changes: +IOHEXOL-350 50ML VIAL IV ONE; +IOHEXOL-350 75 ML VIAL IV ONE; +metoPROLOL tartRATE 1 MG/ML 5ML VIAL IV ONE
--- NOTE | 2024-06-05 16:24 | HMCIMG ---
CT CARDIAC ANGIO W/CONT. CCTA HISTORY: Atherosclerotic heart disease COMPARISON: None TECHNIQUE: Multiple sequential axial images of the chest were obtained along with the CT angiogram of the chest study. Patient was given 100 cc of Omnipaque through intravenous route. FINDINGS: There is no evidence of pulmonary nodule or parenchymal disease. No pleural effusion or pericardial effusion is seen. There is no evidence of pneumothorax. There are normal size mediastinal and hilar lymph nodes. The heart is not enlarged. Degenerative changes of the thoracolumbar spine are present. IMPRESSION: 1. No evidence of pulmonary nodule or effusion is seen. Please see CT angiogram report of coronary arteries.
--- NOTE | 2024-06-08 18:13 | CARDIOLOGY ---
RAD REPORT: [facility] CT ANGIO RADIOLOGY REPORT: CORONARY CT ANGIOGRAPHY DATE: Jun 08, 2024 QUALITY: Excellent CLINICAL HISTORY AND INDICATION: [ coronary artery bypass graft patency ] TECHNIQUE: After obtaining a preliminary stock roller image, contrast imaging performed on an [employer] [id number] scanner. A dedicated, limited window, coronary imaging protocol was used, with single breath-hold, retrospective ECG gating, and automated arrhythmia rejection. 100 cc of low osmolar contrast agent: Omnipaque 350 was delivered via a 18-gauge IV catheter in the right antecubital fossa, using a power injector and followed by 60 cc of normal saline bolus as a chaser. Collimated images were reformatted at 0.5 mm intervals, and sent to an offline independent workstation for interpretation, using 3D anatomic reconstructions: Curved multiplanar reconstructions, maximum intensity projections, and multiplan ar imaging. 20 mg IV metoprolol was administered prior to scanning. No SL nitroglycerin was given. CORONARY ARTERY DESCRIPTIONS: The coronary arteries arise in normal position. Left main coronary artery: Normal caliber vessel that bifurcates into the LAD and LCx. Left anterior descending coronary artery: Normal caliber vessel and gives rise to diagonal and septal branches. Left circumflex coronary artery: Normal caliber, nondominant and gives rise to a large OM branch. Right coronary artery: Large, dominant vessel giving rise to the PL and PDA branches. *Due to abrupt rise in HR during contrast infusion and motion artifact, luminal stenosis of the upper [place] coronary arteries is not able to be quantitated. Patent [place] to LAD. Patent SVG to LCx. Thoracic Aorta: Normal diameter. Leandra Lopez MD Cardiovascular Disease [facility] LEANDRA LOPEZ MD Jun 08, 2024 18:13
== END | disposition home or self-care (01) ==
LOC: RAH 05-13 07:49
PROVIDERS: ATTEND Internal Medicine Cardiovascular Disease
DX: I25.10 Atherosclerotic heart disease of native coronary artery without angina pectoris (principal); M47.815 Spondylosis without myelopathy or radiculopathy, thoracolumbar region; Z95.1 Presence of aortocoronary bypass graft
CPT/HCPCS: 75574; J3490; Q9967